=== PATIENT | female | born 1995 | race Caucasian/White ===

== ENCOUNTER 2021-03-16 08:44 | Emergency (ER) | payer OTHER ==
[~2021-03-16] VITALS: Ht 157.5 cm; Wt 45.4 kg
[2021-03-16 09:31] LABS: ABSOLUTE EOSINOPHILS 0.1 thou/uL (0.0-0.7); ABSOLUTE LYMPHOCYTES 1.5 thou/uL (0.8-5.3); ABSOLUTE MONOCYTES 0.4 thou/uL (0.0-1.2); ABSOLUTE NEUTROPHILS 5.3 thou/uL (1.6-8.1); BASOPHILS 0.3 %; EOSINOPHILS 0.9 %; HEMATOCRIT 35.4 % (37.0-47.0); LYMPHOCYTES 20.4 %; MCH 29.8 pg (26.0-34.0); MCHC 33.9 g/dL (28.0-37.0); MONOCYTES 5.7 %; MPV 7.9 fl. (7.2-11.1); NUCLEATED RBCS 0 /100WBC; PLATELET COUNT* 209 thou/uL (150-400); POLYS 72.7 %; RBC 4.03 mil/uL (4.20-5.00); RDW-CV 12.2 % (10.5-14.5); WBC 7.3 thou/uL (4.0-11.0)
[2021-03-16 09:40] LABS: CALCIUM 9.2 mg/dL (8.5-10.1); POTASSIUM 3.5 mmol/L (3.5-5.1)
[2021-03-16 09:44] LABS: TOTAL BILIRUBIN 0.6 mg/dL (<0.1-1.0)
[2021-03-16] MEDS ORDERED: PROTONIX40 M2 PO (10:04)
[2021-03-16] MEDS ORDERED: CARAFATE 1 GM TA1 G1 PO (10:04)
[2021-03-16] MEDS ORDERED: ZOFRAN ODT4 MG DISSOLVE (10:04)
[2021-03-16 10:09] VITALS: BP 125/85
--- NOTE | 2021-03-16 10:50 | EKG ---
[place] [address] ELECTROCARDIOGRAM REPORT Name: YEYOMARIELLE DAVID Room: [facility]#: [id number] Admission: 03/16/21 Attend Phys: Discharge: 03/16/21 Date of : [birth year] Date of Service: 03/16/21919 Report #: [id number] THIS REPORT FOR: //name// [facility] ED Test Date: 2021-03-16 Test Time: 09:20:13 Pat Name: MARIELLE ORONA Department: Room: Gender: Electrolytic Etcher: LINDA : 1995 Requested By: Khris Mak Order Number: [id number] MD: Milo Clayton Measurements Intervals [place] Rate: 85 P: -25 OK: 112 QRS: 80 QRSD: 83 T: 47 QT: 370 QTc: 440 Interpretive Statements Sinus rhythm Borderline short OK interval No previous ECG available for comparison Electronically Signed On 03-16-2021 10:50:01 [employer]UEPRINT ENGINE[employer] by Miol Clayton [email or web address] <ELECTRONICALLY SIGNED> By: Milo Clayton MD, [facility] 03/16/21 105 9 9 Milo Clayton MD, FACC /EPI
== END 2021-03-16 10:09 | disposition home or self-care (01) ==
LOC: M.ERS 08:44
PROVIDERS: Emergency Medicine Emergency Medical Services
DX: R10.13 Epigastric pain (principal)